=== PATIENT | male | born 1985 | race Caucasian/White ===

== ENCOUNTER 2021-09-27 15:25 | Outpatient (CLI) | payer BC | END 2021-09-27 15:26 | disposition home or self-care (01) | LOC: CSHMRI 15:25 | PROVIDERS: ATTEND Otolaryngology Plastic Surgery within the Head & Neck | DX: H91.8X1 Other specified hearing loss, right ear (principal); H90.41 Sensorineural hearing loss, unilateral, right ear, with unrestricted hearing on the contralateral side | CPT/HCPCS: 70553 ==